=== PATIENT | male | born 1940 | race Caucasian/White ===

== ENCOUNTER 2016-12-30 10:25 | Emergency (ER) | payer MEDICARE, OTHER ==
--- NOTE | 2016-12-30 10:37 | ERNOTE ---
Abdominal HPI - Narrative Date of Service: 12/30/16 - General Time Seen by Provider: 12/30/16 10:28 Source: patient Exam Limitations: no limitations - Immun/Allergies/Home Medications Immunizatons: IMMUNIZATION HX Immunizations Up to Date Yes History of Influenza Vaccine Yes Hx Pneumococcal Vaccination Yes Allergies/Adverse Reactions: Allergies No Known Allergies Allergy (Verified 12/30/16 10:35) Home Medications: HOME MEDICATIONS Furosemide [Lasix] 40 mg PO DAILY tablet 08/25/15 [Last Taken 12/15/15] Finasteride [Proscar] 5 mg PO DAILY 12/04/15 [Last Taken 12/15/15] Cholecalciferol (Vitamin D3) [Vitamin D3] 2,000 unit PO DAILY #.1 tab.chew 12/08 [Last Taken 12/15/15] Psyllium Husk/Aspartame [Metamucil Fiber Singles Packet] 3.4 gm PO DAILY #.1 powd.pack 12/09/15 [Last Taken 12/15/15] Tamsulosin HCl [Flomax] 0.4 mg PO DAILY@1800 #.1 cap.er.24h 12/09/15 [Last Taken 12/15/15] Aspirin 81 mg PO DAILY 12/30/16 [Last Taken Unknown] - History of Present Illness Narrative: Pt. comes in with c/o constipation for three days. Pt. states that he has not been able to have a BM and that it has made his stomach uncomfortable in general. Pt. denies any fevers, NVD, recent illness, or injury. Pt. denies any regular medication to prevent constipation but does state that he tried a tablespoon of mineral oil and a mineral oil enema prior to arrival without any relief. Timing: getting worse Quality: mild, fullness Activities at Onset: none Modifying Factors - (Improves): Present: other - none Modifying Factors - (Worsens): Present: breathing, eating, lying down, sitting up, movement Associated Symptoms: Present: denies symptoms Prior Abdominal Problems: Present: none Prior Treatment: Absent: recently seen, treated by physician Review of Systems - Review of Systems Constitutional: Present: no symptoms reported. Absent: recent illness, fever, chills, weakness, fatigue, malaise EYE: Present: no symptoms reported ENT: Present: no symptoms reported Respiratory: Present: no symptoms reported. Absent: shortness of breath, cough , wheezing Cardiology: Present: no symptoms reported. Absent: chest pain, palpitations, edema Gastrointestinal/Abdominal: Present: constipation, abdominal pain - generalized fullness. Absent: nausea, vomiting, diarrhea Genitourinary: Present: no symptoms reported. Absent: frequency, pain, dysuria , decreased urinary output Musculoskeletal: Present: no symptoms reported. Absent: back pain, joint pain Skin: Present: no symptoms reported. Absent: rash, change in color Neurological: Present: no symptoms reported. Absent: headache, dizziness/light- headedness, numbness, tingling All Other Systems: All systems neg except as marked - Patient's Past Medical History Patient History - Medical: Arthritis, Chronic Pain, Dementia, Obesity, Seizures Patient History - Cardiac/Respiratory: Hyperlipidemia Patient History - Cancer: No Hx of Cancer Patient History - Surgical Procedures: Back Surgery Patient History - Other: None - Family History Children Family History - Medical: Seizures Family History - Cardiac/Respiratory: No pertinent hx Mother Family History - Medical: No pertinent hx Family History - Cardiac/Respiratory: No pertinent hx Father Family History - Medical: Family History - Cardiac/Respiratory: Myocardial Infarction Sister Family History - Cardiac/Respiratory: Atrial Fibrillation - Social History Abuse History: No History of abuse Psych History: No pertinent hx - Immunizations Immunizations Up to Date: Yes Hx Pneumococcal Vaccination: Yes History of Influenza Vaccine: Yes Physical Exam - Physical Exam General Appearance: Present: wd/wn, alert, no apparent distress Head Exam: Present: normal inspection, no evidence of injury Eye Exam: Normal inspection: bilateral Respiratory: Present: no respiratory distress, normal breath sounds, no accessory muscle use, chest nontender, lungs clear Cardiovascular/Chest: Present: regular rate, rhythm, no murmur, normal peripheral pulses Gastrointestinal/Abdominal: Present: normal bowel sounds, nontender, no organomegaly, distended. Absent: tenderness, rebound Back Exam: Present: normal inspection, normal range of motion, no CVA tenderness , no vertebral tenderness Extremity Exam: Present: normal inspection, non-tender, normal range of motion, no edema Neurological Exam: Present: alert, oriented, normal mood/affect, no motor/ sensory deficits Skin Exam: Present: normal color, warm/dry. Absent: pallor, skin rash ED Progress - Date and Time Seen: Date and Time: 12/30/16 11:11 Pt. had large BM prior to xray or treatment and would like to go home. I feel that this is fine and educated pt. to take milk of magnesia when he gets home to continue decreasing constipation. - Vital Signs Patient's Vital Signs:: I have reviewed the patient's vital signs. Departure Clinical Impression: Constipation Qualifiers: Constipation type: unspecified constipation type Qualified Code(s): K59.00 - Constipation, unspecified - Departure Disposition: Home self-care Condition: Good Instructions: Constipation, Adult, [id number] Additional Instructions: Please follow up with primary provider in 2-3 days.
[2016-12-30 11:40] VITALS: BP 135/81
== END 2016-12-30 11:15 | disposition home or self-care (01) ==
LOC: ER 10:25
DX: K59.00 Constipation, unspecified (principal); M19.90 Unspecified osteoarthritis, unspecified site; G89.29 Other chronic pain; E78.5 Hyperlipidemia, unspecified; F03.90 Unspecified dementia, unspecified severity, without behavioral disturbance, psychotic disturbance, mood disturbance, and anxiety